=== PATIENT | male | born 1955 | race Caucasian/White ===

== ENCOUNTER 2019-05-25 16:04 | Inpatient (IN) | payer MEDICARE, SELFPAY ==
[2019-05-25] VITALS (14 sets, daily range): BP systolic 109–130; BP diastolic 65–77; PULSE 62–87; RESP 13–23; TEMP 36.4–36.6; O2SAT 93–99; BMI 25.7
--- NOTE | 2019-05-25 16:17 | ED_ITS ---
Entered by Rey Alcantar, acting as scribe for Maxi Aguiar DO HPI - Chest Pain General: Chief Complaint: Chest Pain Stated Complaint: Chest pains Time Seen by Provider: 05/25/19 16:25 History of Present Illness: HPI narrative: 63 yo male presents with chest pain. pt states that he was using a chainsaw when his pain started. Pt states that his pain started at 330pm today. Pt states that he his pain is about a 2/10. Pt states that he took aspirin at 340pm today. MD complaint: chest pain Onset (ago): hour(s) (1 hour) Timing of current episode: constant and still present Prior episodes: No Onset: during exertion Pain radiation: none Pain scale (0-10): 2 Quality: heaviness Relieving factors: nothing Exacerbating factors: nothing Associated symptoms: Deny abdominal pain, dyspnea, fever(s), nausea, palpitations, syncope or vomiting Review of Systems Const: Denies: fever, chills, body aches, fatigue, malaise or night sweats Eyes: Denies: change in vision or blurry vision ENMT: Denies: throat pain, oral sores/lesions, dental pain, nasal discharge or nasal congestion Card: Reports: chest pain; Denies: palpitations, irregular heart rhythm, edema, syncope, shortness of breath on exertion, shortness of breath when lying down or leg pain with exertion Resp: Denies: shortness of breath, productive cough, non-productive cough or wheezing GI: Denies: abdominal pain, nausea, vomiting, vomiting blood, coffee grounds in vomit, difficulty swallowing, heartburn/indigestion, diarrhea, constipation, cramping, blood in stool or black tarry stool : Denies: flank pain, difficulty urinating, painful urination, urinary frequency, urinary urgency, urinary incontinence or blood in urine Musc: Denies: neck pain, back pain, extremity pain, extremity swelling, joint pain or joint swelling Skin/Breast: Denies: rash, itching or redness Neuro: Denies: headache, numbness in extremities, weakness in extremities, changes in sensation, lack of coordination, difficulty walking, frequent falls, dizziness, vertigo or confusion Psych: Denies: anxiety, depression, loss of interest, visual hallucinations, auditory hallucinations, suicidal ideation or homicidal ideation Endo: Denies: excessive urination, excessive thirst, tired all the time or cold intolerance Jaspreet/Lymph: Denies: easy bruising, easy bleeding, petechiae, enlarged lymph nodes or tender lymph nodes PFSH ED PFSH: Statuses (acute, chronic, etc) shown below reflect problem list status as previously entered and may not be historically accurate Social History Smoking and tobacco status: never smoked Physical Exam Const: COMMON NORMALS: average body habitus, oriented x3 and alert GENERAL APPEARANCE: cooperative, comfortable, well kempt and well developed NUTRITIONAL APPEARANCE: not obese ORIENTATION/CONSCIOUSNESS: Yes awake, Yes oriented to person and Yes oriented to place HENMT: COMMON NORMALS: normocephalic, head/scalp atraumatic, EAC's normal, TM's normal bilaterally, external nose normal, moist oral mucous membranes and oropharynx normal HEAD & SCALP: normocephalic and atraumatic NOSE: external nose normal EXTERNAL AUDITORY CANAL: EAC's normal TYMPANIC MEMBRANE: TM's normal bilaterally MOUTH: oral and palatal mucosa normal, lip normal and tongue normal THROAT: posterior oropharynx normal and tonsils normal Eye: COMMON NORMALS: PERRL, EOMs intact bilaterally, conjunctivae normal and no scleral icterus CONJUNCTIVA: Yes conjunctivae normal PUPIL: Yes PERRL Neck/C-Spine: COMMON NORMALS: full ROM, no lymphadenopathy, supple, no meningeal signs and thyroid normal THYROID: thyroid normal and asymmetrical Lymph: LYMPHATIC: no lymphadenopathy noted Resp: COMMON NORMALS: normal respiratory effort, no retractions, no use of accessory muscles and clear to auscultation bilaterally AUSCULTATION: clear to auscultation bilaterally Cardio: HEART SOUNDS: no murmurs GI: COMMON NORMALS: normal to inspection, nondistended, normoactive bowel sounds, soft to palpation and no hepatosplenomegaly PALPATION: Yes soft and Yes no hepatosplenomegaly : COMMON NORMALS: Yes no CVA tenderness BLADDER/KIDNEY EXAM: Yes no CVA tenderness Back/Pelvis: COMMON NORMALS: no CVA tenderness LUMBAR SPINE/LOWER BACK: Yes normal to inspection Extremity: COMMON NORMALS: no clubbing, cyanosis or edema, no calf tenderness and no pedal edema Neuro: COMMON NORMALS: oriented x3 SENSORIUM/ORIENTATION: Yes alert, Yes oriented to person and Yes oriented to place MENINGEAL SIGNS: Yes no meningeal signs Psych: APPEARANCE: Yes well kempt Skin: COMMON NORMALS: no rashes or lesions noted and skin turgor normal GENERAL SKIN EXAM: no rashes or lesions noted and turgor normal Course ED course: EKG shows obvious inferior STEMI. Discussed Dr. Lopes he is in route. Appropriate STEMI protocols were followed patient taken directly to the Ground Systems Engineer with the care of Dr. Lopes. Vital Signs: Vital signs: Vital Signs Temperature 97.6 F 05/25/19 16:17 Pulse Rate 79 05/25/19 16:31 Respiratory Rate 16 05/25/19 16:31 Blood Pressure 119/72 05/25/19 16:31 Pulse Oximetry 99 05/25/19 16:31 MDM - Chest Pain Lab Data: Labs: Lab Results 05/25/19 05/25/19 Range/Units 16:20 16:20 WBC 7.9 (4.0-10.0) 10^3/ uL RBC 4.77 (4.1-5.3) 10^6/u L Hgb 14.7 (11.7-16.6) g/dL Hct 41.1 L (42.0-52.0) % MCV 86.2 (80-94) fL MCH 30.8 (28.0-34.0) pg MCHC 35.8 (30.0-36.0) g/dL RDW 12.5 (12.1-15.1) % Plt Count 248 (130-400) 10^3/c mm MPV 9.8 (7.4-10.4) fL Neut % (Auto) 57.0 % Lymph % (Auto) 35.5 % [place] % (Auto) 5.9 % Eos % (Auto) 1.0 % Baso % (Auto) 0.3 % Neut # (Auto) 4.5 (1.8-7.7) 10^3/u L Lymph # (Auto) 2.8 (0.8-4.8) 10^3/u L [place] # (Auto) 0.5 (0.2-0.9) 10^3/u L Eos # (Auto) 0.1 (0.0-0.8) 10^3/u L Baso # (Auto) 0.0 (0.0-0.1) 10^3/u L Nucleated RBC % (a uto) 0 % Nucleated RBCs # 0.0 /100WBC PT 13.00 (10.5-13.3) SECO NDS INR 0.95 (0.8-1.2) Discharge Plan Discharge Patient Disposition: Admitted As Inpatient Clinical Impression: ST elevation myocardial infarction (STEMI) Condition: Stable Coding Level of Care Code ED Movable Bulkhead Installer for Chg Fwd Exam Problem Focused The documentation recorded by the Ortiz kaur Kialy, accurately reflects the service I personally performed and the decisions made by Stefania blevins Curtis L, DO May 25, 2019 16:04
--- NOTE | 2019-05-25 16:25 | XRR_ITS ---
PROCEDURE INFORMATION: Exam: XR Chest, 1 View Exam date and time: 05/25/2019 4:26 PM Age: 63 years old Clinical indication: Other: Stemi TECHNIQUE: Imaging protocol: XR of the chest Views: 1 view. COMPARISON: No relevant prior studies available. FINDINGS: Lungs: There is a calcified granuloma at the right lung base. No focal infiltrate is identified. Pleural space: Unremarkable. No pleural effusion. No pneumothorax. Heart/Mediastinum: Heart is within normal limits of size. Bones/joints: There are degenerative changes in the thoracic spine. XR/XR chest 1V portable [id number] IMPRESSION: No acute infiltrate.
--- NOTE | 2019-05-25 16:25 | ECG_ITS ---
Measurements Intervals [place] Rate: 56 P: 49 WV: 244 QRS: 34 QRSD: 123 T: 48 QT: 413 QTc: 402 SINUS BRADYCARDIA WITH SINUS ARRHYTHMIA WITH FIRST DEGREE AV BLOCK MODERATE INTRAVENTRICULAR CONDUCTION DELAY [110+ ms QRS DURATION] MARKED ST ELEVATION, CONSIDER INFERIOR INJURY [MARKED ST ELEVATION W/O NORMALLY I INFLECTED T WAVE IN II/aVF] ACUTE [place] No previous ECG available for comparison Electronically Signed On 05-25-2019 22:17:16 ASSEMBLER METAL BUILDING by Nelson Mcgowan M.D. [email or web address]
[2019-05-25] MEDS: aspirin 325 mg Tablet PO (16:32)
[2019-05-25] MEDS: clopidogrel 300 mg Tablet PO (16:32)
[2019-05-25] MEDS: heparin 5,000 unit/mL INJ 1 mL 4000 UNIT IVP (16:32)
[2019-05-25 16:40] LABS: Basophils % 0.3 %; Eosinophils # 0.1 10^3/uL (0.0-0.8); Hematocrit 41.1 % (42.0-52.0); Hemoglobin 14.7 g/dL (11.7-16.6); Lymphocytes # 2.8 10^3/uL (0.8-4.8); Lymphocytes % 35.5 %; Mean Corpuscular HGB Conc 35.8 g/dL (30.0-36.0); Mean Corpuscular Hemoglobin 30.8 pg (28.0-34.0); Mean Corpuscular Volume 86.2 fL (80-94); Mean Platelet Volume 9.8 fL (7.4-10.4); Monocytes # 0.5 10^3/uL (0.2-0.9); Monocytes % 5.9 %; Neutrophils # 4.5 10^3/uL (1.8-7.7); Nucleated Red Blood Cells % 0 %; Platelet Count 248 10^3/cmm (130-400); Red Blood Count 4.77 10^6/uL (4.1-5.3); Red Cell Distribution Width 12.5 % (12.1-15.1); White Blood Count 7.9 10^3/uL (4.0-10.0)
[2019-05-25] MEDS: sodium chloride 0.9% 1,000 ML 999 ML IV (16:40)
--- NOTE | 2019-05-25 16:51 | PM.HP ---
Providers/Chief Complaint Admitting Physician: Nelson Mcgowan MD Chief Complaint: Chest pains History of Present Illness Darryn Loving is a 63 year old male presented to the emergency room with chest pain radiating to left arm since 3 PM today. Twelve-lead EKG showed sinus bradycardia with ST elevation in the inferior leads and reciprocal changes. Patient denies any prior history of heart problem, CVA, smoking but admits to be potential diabetic and hypertension. He will be immediately taken to the [facility]. He was loaded with antiplatelet and given heparin. Medications/Allergies Allergies Allergy/AdvReac Type Severity Reaction Status Date / Time No Known Allergies Allergy Verified 05/25/19 16:16 PFSH Acute PFSH: Statuses (acute, chronic, etc) shown below reflect problem list status as previously entered and may not be historically accurate Social History Smoking and tobacco status: never smoked Vitals/I&O/Wt Last Vital Signs Temp 97.6 F 05/25/19 16:17 Pulse 79 05/25/19 16:31 Resp 16 05/25/19 16:31 BP 119/72 05/25/19 16:31 Pulse Ox 99 05/25/19 16:31 Weight last 48 hrs Weight 190 lb Physical Exam Narrative: EXAM NARRATIVE: GENERAL: Patient is alert, awake and oriented x3. NECK: No jugular vein distension. HEENT: No cyanosis. No icterus. No pallor. HEART: Regular S1 and S2. No murmur, rub or gallop. LUNGS: Clear to auscultate bilaterally. ABDOMEN: Soft, nontender and nondistended. Positive bowel sounds. No guarding, rebound or tenderness. CENTRAL NERVOUS SYSTEM: Grossly nonfocal. EXTREMITIES: Lower extremities without edema bilaterally. Pulses palpable in the lower extremities, both dorsalis pedis and posterior tibial. Data : 05/25/19 16:20 A&P Assessment and plan (1) ST elevation myocardial infarction (STEMI): Patient presentation is pretty consistent with inferior wall ST elevation [place]. He was treated with as per ACS protocol. We will immediately take him to the [facility]. Further plan will be advised accordingly. Patient has been explained all risk benefit and alternative for the procedure including emergent CABG if indicated by myself. He agrees by consenting us. Status: Acute Code(s): I21.3 - ST elevation (STEMI) myocardial infarction of unspecified site Coding Level of Care Code Acute Basket Bottom Machine Operator for Chg Fwd History Expanded Problem Focused Exam Expanded Problem Focused Medical Decision Making Moderate Complexity Diagnoses ST elevation myocardial infarction (STEMI) I21.3
[2019-05-25 16:53] LABS: INR 0.95 (0.8-1.2)
--- NOTE | 2019-05-25 16:53 | XACV_ITS ---
Ht: 183 cm Wt: 86 kg BSA: 2.10 m2 Gender: Male : 1955 Any Known Allergies: No known allergies Exam Priority: Routine Procedure(s): Procedure Description: Diagnostic procedure Procedure Description: PCI procedure Procedure Description: Left Heart Catheterization Procedure Description: Drug Eluting Coronary Stent Procedure Description: PTCA Procedure Description: Miscellaneous Procedure Description: ACT Diagnostic Findings LM has 0% stenosis. CX has 0% stenosis. pLAD: Moderate 60% stenosis, SPENSER: 3 flow. dLAD: Moderate 60% stenosis, SPENSER: 3 flow. dLAD: Severe 95% stenosis, SPENSER: 2 flow. pRCA: Moderate 60% stenosis, SPENSER: 3 flow. Distal Right Coronary Artery: Severe 95% stenosis, SPENSER: 2 flow. Coronary angiography shows right dominance. PCI Status: Emergency PCI Indication: STEMI - Immediate PCI for STEMI Interventional Findings dLAD: 95% stenosis treated with MDT R KESHA 3.0X15 SHREYAS and MDT NC EUPHORA RX 3.86K80AY BALLOON. 0% residual stenosis, SPENSER: 3 flow. Distal Right Coronary Artery: 95% stenosis treated with Drug Eluting Stent. 0% residual stenosis, SPENSER: 3 flow. Lesion was predilated with AB trek 2.512 Rx balloon before deploying the stent. Conclusions There is severe coronary artery disease with two vessel disease. dLAD was treated with Drug Eluting Stent and Balloon. Distal Right Coronary Artery was treated with Drug Eluting Stent. Recommendations 1-Return to inpatient for close monitoring and routine cath care2-Risk factor modification for secondary prevention3-Statin and aspirin 81 mg life-long, if tolerated4-Patient was pre-loaded with 600 mg of Plavix, continue Plavix 75mg p.o. daily for at least one year. We will assess at the end of one year again to continue if further or not5-Continue optimal medical management6-Follow up with Dr. Mcgowan in four weeks and your primary care in 10 days. Interventional RX Recommendation: PCI w/o planned CABG Diagnostic RX Recommendation: PCI w/o planned CABG Pressures Phase:Rest AO : 145 mmHg / 83 mmHg ( 112 mmHg ) @ 11:20:00 AM 27 mmHg / -4 mmHg ( 4 mmHg ) @ 11:25:00 AM 86 mmHg / 60 mmHg ( 73 mmHg ) @ 11:26:00 AM 28 mmHg / 7 mmHg ( 14 mmHg ) @ 11:27:00 AM 103 mmHg / 64 mmHg ( 82 mmHg ) @ 11:28:00 AM 98 mmHg / 64 mmHg ( 80 mmHg ) @ 11:30:00 AM 98 mmHg / 70 mmHg ( 83 mmHg ) @ 11:33:00 AM 100 mmHg / 61 mmHg ( 80 mmHg ) @ 11:40:00 AM 95 mmHg / 57 mmHg ( 72 mmHg ) @ 11:41:00 AM 103 mmHg / 59 mmHg ( 75 mmHg ) @ 11:46:00 AM 94 mmHg / 57 mmHg ( 73 mmHg ) @ 11:47:00 AM 88 mmHg / 51 mmHg ( 67 mmHg ) @ 11:58:00 AM Clinical Evaluation EBL: 5mL-10mL Procedural Details Procedure Consent Obtained. Current Diagnosis : STEMI. Pre-Procedure Time Out. Identified patient by full name and date of as verbalized by the patient/guarantor. Does the consent match the physician's order: Yes. Accurate & Complete Informed Consent: Yes. Inpatient/Outpatient History & Physical on Chart: N/A Emergent; Informed Consent not obtained due to time critical life threat. If H&P is completed, is and addenduem needed: N/A Emergent; Informed Consent not obtained due to time critical life threat; If yes, is the addendum complete: N/A Emergent; Informed Consent not obtained due to time critical life threat. Visualize and Verify Site with Patient/Guarantor: N/A. Relevant Radiology Images available: N/A Emergent; Informed Consent not obtained due to time critical life threat. The risks, benefits, and alternatives of sedation and/or procedure were discussed by physician. The patient agrees to continue. Current diagnosis: STEMI. PERRLA. Strong, equal hand housecleaner floor bilaterally. Lungs clear x 5 lobes. Procedure started. Correct patient, site and procedure confirmed by cath team. IV Site on Arrival: 22 gauge in the right anticubital. Physician notified. Baseline sample Acquired. HR: 87 BPM. right groin was prepped with chloroprep then draped in the usual sterile fashion. right radial was prepped with chloroprep then draped in the usual sterile fashion. Oxygen started at 2liters/min via nasal canula. IV Fluids: 0.9% NaCl at KVO. 0 mL infused prior to laborer heading. Physician arrived. Physician scrubbed in. Immediate Pre-Procedure Time Out. Correct Patient: Yes; Correct Procedure: Yes; Correct Site: Yes; Correct Patient Position: Yes; Correct Supplies: Yes; Dried Flammable Prep: Yes; Blood Products Available: No;. Lidocaine 1% infiltrated to the right radial. Arterial access obtained. Equipment: 6F - Radial. ACIST Manifold Kit Model BT 2000. Cardiac Cath Pack. Heparinized Saline (2 units/mL), 1000 mL bag. 6 albanian JR 4 guide catheter was inserted over the wire. Inventory is Serious Energytronic Gordon XT .014 190cm Str. Guidewire. Multiple views taken of right coronary artery. AP pad applied to pt. Gordon guidewire was advanced through the guide catheter to lesion in the distal RCA. Inflation number : 1 A AB TREK 2.50X12 RX BALLOON was prepped and advanced across the Dist RCA , then inflated to 12 MITCH for 0:18 seconds. Inflation number: 2 The AB TREK 2.50X12 RX BALLOON was reinflated across the Dist RCA, to 10 MITCH for 0:09 seconds. Balloon out. stent inserted and removed undeployed and intact. Inflation Number : 3 A JAI Robbins KESHA 2.75X26 SHREYAS -Lot Number# [id number] exp 10-27-2019 was prepped and advanced across the Dist RCA. The stent was deployed at 12 MITCH for 0:29 seconds. Stent balloon out over wire. Results checked. Wire out. Guide catheter out. ACT drawn. Results 230 seconds. Therapeutic limits - pre-heparin administration 90-150 seconds and monitoring heparin during a vascular procedure >250 seconds. A 6 albanian TIG catheter in over wire. Multiple views taken of left coronary artery. Catheter out. 6 albanian XB 3.5 guide catheter was inserted over the wire. Gordon guidewire was advanced through the guide catheter to lesion in the mid LAD. Inflation Number : 1 A MDT R KESHA 3.0X15 SHREYAS -Lot Number# [id number] exp 12-24-2020 was prepped and advanced across the Mid LAD. The stent was deployed at 14 MITCH for 0:30 seconds. Patient's family updated. Inflation number : 2 A MDT NC EUPHORA RX 3.38J34CW BALLOON was prepped and advanced across the Mid LAD , then inflated to 12 MITCH for 0:20 seconds. Inflation number: 3 The MDT NC EUPHORA RX 3.41W59WX BALLOON was reinflated across the Mid LAD, to 8 MITCH for 0:12 seconds. Inflation number: 4 The MDT NC EUPHORA RX 3.66G38TQ BALLOON was reinflated across the Mid LAD, to 8 MITCH for 0:06 seconds. Inflation number: 5 The MDT NC EUPHORA RX 3.73R60DC BALLOON was reinflated across the Mid LAD, to 12 MITCH for 0:19 seconds. A TR Band was successful obtaining hemostatsis at the Right Radial artery insertion site. TR band placed. Hemostasis obtained. Post Procedure: Pulses reassessed and unchanged. PERRLA. Strong, equal hand housecleaner floor bilaterally. No VTE prophylaxis required. Fluoro: 17:40. Contrast type used: Omnipaque 300 mgI/mL, 500 mL bottle. [id number]. Post-op diagnosis: stemi. Complications: none. Estimated blood loss: 5mL-10mL. Procedure completed. Patient transferred by wheelchair to 1st floor. PCI Indication: STEMI. Medication's Wasted: Nitro = 49.8 mg. Medication's Wasted: Lidocaine 1% = 17 mL. Medication's Wasted: Heparin = 3000 units. Total IV fluids: 800 mL. [facility] Clinical Fraility Score: 3: Managing Well. Syrup Maker Indications: ACS <= 24 hours. Chest Pain Symptom Assessment: Typical Angina Symptoms. Cardiovascular Instability: No. Vital chart was stopped. Site: Right Radial artery Sheath Size: 6 Fr Hemostasis Method: TR Band Hemostasis Success: Successful Procedure Medications Start: 5:09 PM Stop: 5:09 PM Medication: Versed Amount: 1 mg Route: I.V. Start: 5:09 PM Stop: 5:09 PM Medication: Fentanyl Amount: 50 mcg Route: I.V. Start: 5:14 PM Stop: 5:14 PM Medication: Heparin Amount: 4000 units Route: I.V. Start: 5:15 PM Stop: 5:15 PM Medication: Aggrastat 12.5 mg/250 mL Amount: 43 ml Route: I.V. bolus Start: 5:16 PM Stop: 5:16 PM Medication: Aggrastat 12.5 mg/250 mL Amount: 15.5 ml/hr Route: I.V. drip Start: 5:26 PM Stop: 5:26 PM Medication: Atropine Amount: 1 mg Route: I.V. Start: 5:42 PM Stop: 5:42 PM Medication: Heparin Amount: 1000 units Route: I.V. Start: 5:44 PM Stop: 5:44 PM Medication: Versed Amount: 1 mg Route: I.V. Start: 5:44 PM Stop: 5:44 PM Medication: Fentanyl Amount: 50 mcg Route: I.V. I, the attending physician, have reviewed and verified all procedure medications. Yes, all medications given per verbal order History/Risk Factors Hypertension: No Dyslipidemia: No Peripheral Arterial Disease (PAD): No Myocardial Infarction (HI): No Obesity: No Renal Disease: No Prior Interventions PCI: No CABG: No Valve Surgery: No Report Signatures Finalized by:Nelson Mcgowan MD on 06/08/2019 3:36:35 PM
[2019-05-25 16:54] LABS: Partial Thromboplastin Time 26.4 SECONDS (23.9-36.7)
[2019-05-25 17:00] LABS: Troponin(5th) Baseline 18 ng/mL (0-15)
[2019-05-25 17:07] LABS: Alanine Aminotransferase 19 U/L (0-41); Albumin Level 4.3 g/dL (3.5-5.2); Alkaline Phosphatase 69 IU/L (40-130); Anion Gap 16.7 (5-19); Aspartate Amino Transferase 20 U/L (0-40); Blood Urea Nitrogen 13 mg/dL (8-23); CKMB 3.9 ng/mL (0-10.4); Calcium 9.7 mg/dL (8.5-10.5); Carbon Dioxide 24 mmol/L (22-29); Chloride 99 mmol/L (98-107); Creatine Phosphokinase 217 U/L (39-308); Globulin 2.4 g/dL (1.3-4.6); Glomerular Filtration Rate 67.2 mL/min (90-130); Glucose 172 mg/dL (65-115); NT Pro B Type Natriuretic Pept 29 pg/mL (0-125); Sodium 137 mmol/L (136-145); Total Bilirubin 0.5 mg/dL (0.15-1.2); Total Protein 6.7 g/dL (6.6-8.7)
[2019-05-25 17:25] LABS: Potassium 2.7 mmol/L (3.5-5.1)
[2019-05-25] MEDS: sodium chlor 0.9% + KCl 20 mEq 20 MEQ/1,000 ML BAG 100 MEQ IV (21:31)
--- NOTE | 2019-05-25 22:25 | ECG_ITS ---
Measurements Intervals [place] Rate: 69 P: 57 UT: 229 QRS: -8 QRSD: 110 T: -5 QT: 372 QTc: 400 SINUS RHYTHM WITH FIRST DEGREE AV BLOCK INFERIOR MYOCARDIAL INFARCTION [40+ ms Q WAVE AND/OR ST/T ABNORMALITY IN II/aVF], OF INDETERMINATE AGE WITH POSTERIOR EXTENSION No previous ECG available for comparison Electronically Signed On 05-25-2019 22:19:54 PHYSICAL THERAPY ASSISTANT INSTRUCTOR by Nelson Mcgowan M.D. [email or web address]
--- NOTE | 2019-05-25 23:05 | PC.NURSE ---
patient delivered to the floor via wheelchair. patient alert and oriented, no complaint of sob or pain.
--- NOTE | 2019-05-25 23:06 | PC.NURSE ---
at shift change Dr. Mcgowan was at bedside with the patient about 1900 and said to turn aggrastat off.
--- NOTE | 2019-05-25 23:07 | PC.NURSE ---
tr band emptied by 2100, nno hematoma or bleeding, no swelling to site, no problems to removing the trband and covering it with x2 and tegaderm. patient educated on care of site and activity regarding that arm.
[2019-05-26] VITALS (8 sets, daily range): BP systolic 109–147; BP diastolic 66–93; PULSE 59–76; RESP 13–24; TEMP 36.6–36.9; O2SAT 94–96
[2019-05-26 05:17] LABS: Basophils % 0.1 %; Eosinophils % 0.6 %; Lymphocytes # 2.2 10^3/uL (0.8-4.8); Lymphocytes % 30.2 %; Mean Corpuscular HGB Conc 34.1 g/dL (30.0-36.0); Mean Corpuscular Hemoglobin 30.7 pg (28.0-34.0); Mean Corpuscular Volume 89.9 fL (80-94); Mean Platelet Volume 10.1 fL (7.4-10.4); Monocytes # 0.5 10^3/uL (0.2-0.9); Monocytes % 7.3 %; Neutrophils # 4.4 10^3/uL (1.8-7.7); Neutrophils % 61.5 %; Nucleated Red Blood Cells % 0 %; Platelet Count 203 10^3/cmm (130-400); Red Blood Count 4.56 10^6/uL (4.1-5.3); Red Cell Distribution Width 12.9 % (12.1-15.1); White Blood Count 7.1 10^3/uL (4.0-10.0)
[2019-05-26 05:44] LABS: Troponin T (5th) Once 2847 ng/mL (0-15)
--- NOTE | 2019-05-26 07:50 | PC.NURSE ---
NEUROVASCULAR CHECKS DONE ON PATIENT'S RIGHT WRIST. PULSE IS 3+ AND NORMAL. SKIN IS DRY, NORMAL AND WARM TO THE TOUCH.
[2019-05-26 08:10] LABS: Alanine Aminotransferase 27 U/L (0-41); Albumin Level 4.3 g/dL (3.5-5.2); Alkaline Phosphatase 69 IU/L (40-130); Anion Gap 18.1 (5-19); Aspartate Amino Transferase 90 U/L (0-40); Blood Urea Nitrogen 12 mg/dL (8-23); Calcium 9.5 mg/dL (8.5-10.5); Carbon Dioxide 20 mmol/L (22-29); Chloride 106 mmol/L (98-107); Globulin 2.5 g/dL (1.3-4.6); Glomerular Filtration Rate 84.7 mL/min (90-130); Glucose 134 mg/dL (65-115); Potassium 4.1 mmol/L (3.5-5.1); Sodium 140 mmol/L (136-145); Total Bilirubin 0.4 mg/dL (0.15-1.2); Total Protein 6.8 g/dL (6.6-8.7)
[2019-05-26] MEDS: aspirin 81 mg EC Tablet PO (09:02)
[2019-05-26] MEDS: clopidogrel 75 mg Tablet PO (09:02)
--- NOTE | 2019-05-26 09:48 | PC.CHAP ---
Pastoral Care Encounter/Spiritual Assessment Type of Contact [] Declined apartment maintenance worker visit [] Patient/Family/Request visit [] Outpatient visit [] Follow-up visit [] Physician referral [] Code/Alert [X] Routine visit [] Staff referral [] Actively dying [] Patient sleeping [] Family support [] [] Out of room [] Palliative care [] [] Receiving care in room [] Pre-surgical visit [] Trauma [] Long length of stay [] ICU visit [] Other: Relational/Emotional Strength [X] Patient feels connected with others/family/visitors/staff [] Distress [] Loneliness/isolation [] Abandonment Spirituality of Patient [X] Person of Zelda [X] Attends Rastafari of their Zelda [X] Believes in Prayer [] Reads Bible or Confucianist materials [] There are Spiritual issues to be addressed Gambling Monitor Interventions [X] Prayer [X] Active listening [X] Non-anxious presence [] Spiritual/emotional support [] Crisis/trauma care [] Spiritual counseling [] Bereavement support [] Provided bereavement packet [] Provided Bible/devotional materials [] Provided toy/stuffed animal, coloring book to patient or family member [] Provided Communion [] Anointing/[place] [] Salvation [] Completed spiritual assessment [] Other: Impact on Illness or Injury [] Angry [] Fearful [] Anxious [] Often cries [] Exhaustion [] Unable to work [] Unable to attend congregation [] Unable to walk/stand [] Unable to read [] Unable to drive [] Unable to eat/drink [] Unable to sleep [] Unable to be with family [] Patient intubated [] Other: Summary Requested prayer Time spent with patient
[2019-05-26 11:50] LABS: Glucose Point of Care 208 mg/dL (70-110)
--- NOTE | 2019-05-26 20:30 | PC.NURSE ---
patient was resting in bed,upon attempting to administer atorvastatin dose of 20mg. daughter at bedside and states, I would really like for him to sleep he has not slept that well and I don't want him to be woken up rn call center hospitalist notified. no new orders or instruction given.
--- NOTE | 2019-05-26 20:52 | PM.PN ---
Subjective Subjective: Interval history: Doing fine from a cardiac vascular perspective denies any more chest pain. Status post PCI to distal RCA and mid LAD for ST elevation [place]. Vitals/I&O/Wt Last Vital Signs Temp 98.3 F 05/26/19 12:24 Pulse 74 05/26/19 15:27 Resp 22 H 05/26/19 15:27 BP 129/75 05/26/19 15:27 Pulse Ox 94 05/26/19 15:27 05/26/19 05/26/19 05/26/19 06:59 14:59 22:59 Intake Total 480 / 480 120 / 600 Balance 480 / 480 120 / 600 Weight last 48 hrs Weight 190 lb Physical Exam Narrative: EXAM NARRATIVE: GENERAL: Patient is alert, awake and oriented x3. NECK: No jugular vein distension. HEENT: No cyanosis. No icterus. No pallor. HEART: Regular S1 and S2. No murmur, rub or gallop. LUNGS: Clear to auscultate bilaterally. ABDOMEN: Soft, nontender and nondistended. Positive bowel sounds. No guarding, rebound or tenderness. CENTRAL NERVOUS SYSTEM: Grossly nonfocal. EXTREMITIES: Lower extremities without edema bilaterally. Pulses palpable in the lower extremities, both dorsalis pedis and posterior tibial. Data : 05/26/19 04:30 05/26/19 04:30 A&P Assessment and plan (1) ST elevation myocardial infarction (STEMI): Status post PCI to distal RCA and mid LAD, we will add statin and beta jamison to the regimen. We will also add RAYMOND inhibitor once tolerated blood pressure kovacs. Continue Plavix. Echocardiogram to assess LV function. Lipids will also be checked Status: Acute Code(s): I21.3 - ST elevation (STEMI) myocardial infarction of unspecified site Attestations Medical Necessity Statement*: Required continuation hospitalization for post DE care Coding Level of Care Code Established Pt Acute Highway Engineering Technician for Chg Fwd Patient Type Established History Expanded Problem Focused Exam Expanded Problem Focused Medical Decision Making Moderate Complexity Diagnoses ST elevation myocardial infarction (STEMI) I21.3
[2019-05-27] VITALS: BP 110/65; PULSE 66; RESP 17; TEMP 36.9; O2SAT 91
[2019-05-27 04:00] VITALS: BP 98/58; PULSE 71; RESP 18; TEMP 36.7; O2SAT 92
[2019-05-27 08:00] VITALS: BP 132/81; PULSE 70; RESP 14; TEMP 36.7; O2SAT 97
[2019-05-27] MEDS: metoprolol succinate ER (24 HR) 25 mg Tablet 12.5 MG PO (08:36)
[2019-05-27] MEDS: aspirin 81 mg EC Tablet PO (08:36)
[2019-05-27] MEDS: clopidogrel 75 mg Tablet PO (08:36)
[2019-05-27 10:26] LABS: Troponin T (5th) Once 1036 ng/mL (0-15)
[2019-05-27 12:00] VITALS: BP 134/80; PULSE 77; RESP 13; TEMP 36.7; O2SAT 97
--- NOTE | 2019-05-27 12:55 | PM.DCS ---
Discharge Providers Date of Admission: 05/25/19 18:25 Date of Discharge: Date of Discharge: May 27, 2019 Attending Provider at Admission: Nelson Mcgowan MD Attending Provider at Discharge: Nelson Mcgowan MD Diagnoses at Discharge Discharge Diagnosis (1) ST elevation myocardial infarction (STEMI): Status: Acute Problem details: Status post PCI to distal RCA and mid LAD. Culprit vessel was RCA. Reason for Visit Reason for Visit: Reason For Visit: Chest pains Hospital Course Discharge Summary: Pleasant 63-year-old male presented with inferior wall ST elevation [place] taken to [facility]. He was found to have 99% occluded distal RCA treated with drug-eluting stent. During the same angiogram it was learned that patient had distal and mid 80% stenosis of LAD which was also treated with drug-eluting stent. Proximal LAD has 40-50% stenosis thought to be treated medically.Over the next 2 days patient recovered and doing fine from a cardiovascular perspective . Left ventricular ejection fraction by echocardiogram is normal and 55%. Right wrist wound looks good. He denies any complication. He is being discharged. He will be following up with us in the clinic. Physical Exam Narrative: EXAM NARRATIVE: GENERAL: Patient is alert, awake and oriented x3. NECK: No jugular vein distension. HEENT: No cyanosis. No icterus. No pallor. HEART: Regular S1 and S2. No murmur, rub or gallop. LUNGS: Clear to auscultate bilaterally. ABDOMEN: Soft, nontender and nondistended. Positive bowel sounds. No guarding, rebound or tenderness. CENTRAL NERVOUS SYSTEM: Grossly nonfocal. EXTREMITIES: Lower extremities without edema bilaterally. Pulses palpable in the lower extremities, both dorsalis pedis and posterior tibial. 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 Stat Exams 05/25/19 16:53 Ordered Labs from last 24 hours 05/27/19 09:04 Troponin T Gen 5 n g/L 1036 H* Vitals: Last Vital Signs Temp 98.1 F 05/27/19 08:00 Pulse 70 05/27/19 08:00 Resp 14 05/27/19 08:00 BP 132/81 05/27/19 08:00 Pulse Ox 97 02/09/20 08:00 Discharge Plan Discharge Patient Disposition: Home, Self-Care Condition: Stable Prescriptions: New aspirin 81 mg Tablet,Delayed Release (Dr/Ec) 81 mg PO DAILY Qty: 90 RF: 4 atorvastatin 40 mg Tablet 20 mg PO BEDTIME Qty: 90 RF: 4 clopidogrel 75 mg Tablet 75 mg PO DAILY Qty: 90 RF: 4 Nitrostat 0.4 mg Tablet, Sublingual 0.4 mg sublingual Q5M PRN (Reason: Chest Pain) Qty: 30 RF: 3 metoprolol succinate 25 mg Tablet Extended Release 24 Hr 12.5 mg PO DAILY Qty: 90 RF: 4 lisinopril 2.5 mg tablet 2.5 mg PO DAILY Qty: 30 RF: 4 Discharge Orders: Discharge Order (Routine); Ordered 05/27/19 Ordered By: Nelson Mcgowan Referrals: [facility], [Staff Physician] - ([facility] will be calling to establish care with one of their fine doctors ( a referral has been sent). If you don't hear from them within a reasonable amount of time, please give them a call at [phone]) Discharge Diet: Cardiac Discharge Activity: Resume usual activity Patient Instructions: Metoprolol (By mouth), Lisinopril (By mouth), Aspirin (By mouth), Nitroglycerin, Rapid Release (By mouth), Atorvastatin (By mouth), Clopidogrel (By mouth), Myocardial Infarction (DC) Activity Restrictions/Additional Instructions: [facility] will be calling to set the following two appointments:Follow-up with Meera Caballero cardiology nurse practitioner in 7 days. Follow-up with Dr. Mcgowan in 6 to 8 weeks. If you don't hear frpm them by Tuesday, please give them a call at [phone] Please establish care with primary care physician. If you have any question or problem please call Dr. Mcgowan's office. Plavix and aspirin are to most important medicine that you should be taking without interruption. Discharge Date/Time: 05/27/19 16:25 Discharge Attestations Time Spent in Discharge Care*: less than 30 min Specific Discharge Activities: Specific discharge activities: educating patient Quality Metrics Clinical Quality Measures During this hospital stay, did patient experience: None Coding Level of Care Code Established Pt Acute Webbing Inspector for Chg Fwd Patient Type Established History Expanded Problem Focused Exam Expanded Problem Focused Medical Decision Making Moderate Complexity Diagnoses ST elevation myocardial infarction (STEMI) I21.3
[2019-05-27 13:16] VITALS: BP 134/80; PULSE 77; RESP 13; TEMP 36.7; O2SAT 97
--- NOTE | 2019-05-27 13:53 | USCV_ITS ---
Darryn Loving Age: 63 Gender: M : 1955 Exam Date: 05/27/2019 14:10 Ordering Phys: Nelson Mcgowan MD ([email or web address]) Technologist: Christo Pedroza Exam Location: [facility] Indication: POST STEMI BP: 134 / 81 HR: 71 Rhythm: Sinus Technical Quality: Fair MEASUREMENTS (Male / Female) Normal Values 2D ECHO LV Diastolic Diameter PLAX 3.9 cm 4.2 - 5.9 / 3.9 - 5.3 cm LV Systolic Diameter PLAX 2.1 cm IVS Diastolic Thickness 1.0 cm 0.6 - 1.0 / 0.6 - 0.9 cm IVS Systolic Thickness 1.5 cm LVPW Diastolic Thickness 1.2 cm 0.6 - 1.0 / 0.6 - 0.9 cm LVPW Systolic Thickness 1.4 cm LVOT Diameter 2.1 cm LV Ejection Fraction 2D Teich 76.9 % LV Ejection Fraction MOD 2C 73.4 % LV Ejection Fraction 2C AL 73.2 % LA Diameter 3.6 cm LA Width 3.1 cm LA Height 3.7 cm RA Width 3.0 cm RA Height 4.1 cm M-MODE LV Diastolic Diameter MM 5.4 cm 4.2 - 5.9 / 3.9 - 5.3 cm LV Systolic Diameter MM 3.9 cm LV Ejection Fraction MM Teich 55.3 % IVS Diastolic Thickness MM 1.1 cm 0.6 - 1.0 / 0.6 - 0.9 cm IVS Systolic Thickness MM 1.3 cm LVPW Diastolic Thickness MM 1.6 cm 0.6 - 1.0 / 0.6 - 0.9 cm LVPW Systolic Thickness MM 1.7 cm RV Diastolic Diameter MM 1.1 cm Aortic Annulus Diameter 3.2 cm LA Ao Ratio MM 1.1 MV E Point Septal Separation 0.9 cm DOPPLER AV Peak Velocity 118.0 cm/s LVOT Peak Velocity 88.0 cm/s AV Area Cont Eq vti 2.9 cm squared AV Area Cont Eq pk 2.6 cm squared MV Area PHT 5.0 cm squared Mitral E to A Ratio 0.7 MV E' Velocity 62.0 cm/s Mitral E to LV E' Septal Ratio 12.7 TR Peak Velocity 238.0 cm/s TR Peak Gradient 22.6 mmHg TV Peak E Velocity 59.0 cm/s Right Atrial Pressure 3.0 mmHg Pulmonary Artery Systolic Pressu 25.7 mmHg PV Peak Velocity 80.0 cm/s FINDINGS Left Ventricle Normal left ventricular cavity size. Normal left ventricular systolic function. Left ventricular ejection fraction is estimated at 55 %. There appeared to be inferior wall hypokinesis.Grade I/IV diastolic dysfunction (abnormal relaxation filling pattern), normal to mildly elevated filling pressures. Right Ventricle The right ventricle is normal in size and function. Right Atrium The right atrium is normal in size. Left Atrium The left atrium is normal in size. Mitral Valve Mildly thickened mitral valve. No mitral valve stenosis. Mild mitral valve regurgitation. Aortic Valve Structurally normal aortic valve without significant sclerosis or stenosis. There is no aortic regurgitation. Tricuspid Valve Mild tricuspid valve regurgitation. Pulmonic Valve Structurally normal pulmonic valve without significant stenosis. There is no pulmonic regurgitation. Pericardium Normal pericardium without effusion. Aorta Normal ascending aorta dimension. CONCLUSIONS 1-Normal left ventricular cavity size. Normal left ventricular systolic function. Left ventricular ejection fraction is estimated at 55 %. There appeared to be inferior wall hypokinesis.Grade I/IV diastolic dysfunction (abnormal relaxation filling pattern), normal to mildly elevated filling pressures. 2-Mildly thickened mitral valve. No mitral valve stenosis. Mild mitral valve regurgitation. 3-Mild tricuspid valve regurgitation. 4-There is no pericardial effusion. 5-There are no prior echocardiogram studies to compare. Nelson Mcgowan MD (Electronically Signed) Final Date: 27 May 2019 15:40 S
== END 2019-05-27 16:25 | disposition home or self-care (01) | DRG 247 ==
LOC: ER 16:47 → CCL 17:00 → CSU 19:06
PROVIDERS: Admitting Provider Internal Medicine Cardiovascular Disease; Emergency Provider Family Medicine; Visit Provider Internal Medicine Cardiovascular Disease
DX: I21.19 ST elevation (STEMI) myocardial infarction involving other coronary artery of inferior wall (principal); Z79.02 Long term (current) use of antithrombotics/antiplatelets; Z79.82 Long term (current) use of aspirin; Z79.899 Other long term (current) drug therapy
CPT/HCPCS: 12345; 36415; 36416; 71045; 80053; 82550; 82553; 82962; 83880; 84484; 85025; 85347; 85610; 85730; 92929; 93005; 93306; 93454; 99282; C1725; C1769; C1874; C1887; C1894; C9606; J0461; J1644; J2001; J2250; J3010; J3246; J3490; J7030; Q9967

== ENCOUNTER → 2019-06-05 11:05 | Outpatient (BNVA) | payer MEDICARE, SELFPAY | PROVIDERS: Visit Provider Nurse Practitioner Family | DX: I25.10 Atherosclerotic heart disease of native coronary artery without angina pectoris (principal) | CPT/HCPCS: 80048 ==

== ENCOUNTER 2021-04-27 10:59 | Outpatient (CLI) | payer MEDICARE, SELFPAY ==
[2021-04-27 11:11] VITALS: BP 182/85; PULSE 70; RESP 17; TEMP 36.4; O2SAT 99; BMI 25.0
[2021-04-27 12:15] VITALS: BP 157/91; PULSE 67; RESP 17; TEMP 36.5; O2SAT 98
[2021-04-27 13:11] VITALS: BP 148/89; PULSE 65; RESP 17; TEMP 36.5; O2SAT 96
[2021-04-27 13:12] VITALS: BP 148/89; PULSE 65; RESP 17; TEMP 36.5; O2SAT 96
== END 2021-04-27 11:00 | disposition home or self-care (01) ==
LOC: OPS 11:06
PROVIDERS: PCP Electrodiagnostic Medicine; Visit Provider Electrodiagnostic Medicine
DX: U07.1 COVID-19 (principal)
CPT/HCPCS: 96365

== ENCOUNTER → 2021-09-07 12:36 | Outpatient (BNVA) | payer MEDICARE, SELFPAY | PROVIDERS: PCP Electrodiagnostic Medicine; Visit Provider Nurse Practitioner Family | DX: I25.10 Atherosclerotic heart disease of native coronary artery without angina pectoris (principal); I10 Essential (primary) hypertension; Z86.16 Personal history of COVID-19 | CPT/HCPCS: 99214 ==

== ENCOUNTER 2021-11-03 21:23 | Emergency (ER) | payer MEDICARE, SELFPAY ==
[2021-11-03 21:29] VITALS: BP 190/81; PULSE 92; RESP 18; TEMP 36.6; O2SAT 97; BMI 25.0
--- NOTE | 2021-11-03 22:09 | ECG_ITS ---
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 Measurements Intervals [place] Rate: 89 P: 61 VA: 215 QRS: 20 QRSD: 109 T: 40 QT: 349 QTc: 426 Interpretive Statements SINUS RHYTHM WITH FIRST DEGREE AV BLOCK Compared to ECG 05/25/2019 20:42:12 Myocardial infarct finding no longer present Electronically Signed On 11-04-2021 16:31:37 CDT by Robert Glynn M.D. [email or web address]
== END 2021-11-04 02:18 | disposition left against medical advice (07) ==
PROVIDERS: Emergency Provider Family Medicine; PCP Electrodiagnostic Medicine
DX: Z53.21 Procedure and treatment not carried out due to patient leaving prior to being seen by health care provider (principal)
CPT/HCPCS: 93005

== ENCOUNTER → 2021-11-10 09:35 | Outpatient (BNVA) | payer MEDICARE, SELFPAY | PROVIDERS: PCP Electrodiagnostic Medicine; Visit Provider Nurse Practitioner Family | DX: I10 Essential (primary) hypertension (principal) | CPT/HCPCS: 36415; 80048; 85025; 99214 ==

== ENCOUNTER → 2022-03-08 14:16 | Outpatient (BNVA) | payer MEDICARE, SELFPAY | PROVIDERS: PCP Electrodiagnostic Medicine; Visit Provider Internal Medicine | DX: I25.10 Atherosclerotic heart disease of native coronary artery without angina pectoris (principal); I10 Essential (primary) hypertension | CPT/HCPCS: 99214 ==

== ENCOUNTER → 2022-11-30 08:59 | Outpatient (BNVA) | payer MEDICARE, SELFPAY | PROVIDERS: PCP Electrodiagnostic Medicine; Visit Provider Nurse Practitioner Family | DX: I25.10 Atherosclerotic heart disease of native coronary artery without angina pectoris (principal); I10 Essential (primary) hypertension | CPT/HCPCS: 99214 ==

== ENCOUNTER → 2023-05-23 15:43 | Outpatient (BNVA) | payer MEDICARE, SELFPAY | PROVIDERS: PCP Electrodiagnostic Medicine; Visit Provider Internal Medicine | DX: I25.10 Atherosclerotic heart disease of native coronary artery without angina pectoris (principal); I10 Essential (primary) hypertension | CPT/HCPCS: 99214 ==

== ENCOUNTER → 2023-11-22 15:22 | Outpatient (BNVA) | payer MEDICARE, SELFPAY | PROVIDERS: PCP Electrodiagnostic Medicine; Visit Provider Internal Medicine | DX: I25.10 Atherosclerotic heart disease of native coronary artery without angina pectoris (principal); I10 Essential (primary) hypertension | CPT/HCPCS: 99213 ==

== ENCOUNTER → 2024-06-22 08:59 | Outpatient (BNVA) | payer MEDICARE, SELFPAY | PROVIDERS: PCP Electrodiagnostic Medicine; Visit Provider Nurse Practitioner Family | DX: I25.10 Atherosclerotic heart disease of native coronary artery without angina pectoris (principal); I10 Essential (primary) hypertension; Z95.5 Presence of coronary angioplasty implant and graft | CPT/HCPCS: 99213 ==

== ENCOUNTER → 2024-12-25 15:25 | Outpatient (BNVA) | payer MEDICARE, SELFPAY | PROVIDERS: PCP Electrodiagnostic Medicine; Visit Provider Internal Medicine Cardiovascular Disease | DX: I25.10 Atherosclerotic heart disease of native coronary artery without angina pectoris (principal); I10 Essential (primary) hypertension; E78.5 Hyperlipidemia, unspecified | CPT/HCPCS: 99214 ==